=== PATIENT | male | born 1940 | race American Indian/Alaskan Native ===

== ENCOUNTER 2018-03-18 06:24 | Day surgery (SDC) | payer MEDICARE ==
[2018-03-16 08:16] VITALS: BMI 29.6
[2018-03-18] MEDS ORDERED: Lidocaine 2% PF (10 ml) Amp ONE (06:50)
[2018-03-18] MEDS ORDERED: Iodixanol 320 MG/ML 100 ML BOTTLE IV ONE (06:51)
[2018-03-18] MEDS ORDERED: Iohexol 350mgl/ml 50 ML ONE (06:51)
[2018-03-18] MEDS ORDERED: Iodixanol 320 MG/ML 200 ML BOTTLE IV ONE (06:51)
[2018-03-18 07:20] LABS: BASO # 0.02 K/mm3 (0.0-2.0); BASO % 0.4 % (0.0-3.0); EOS # 0.2 (0.0-0.7); EOS % 3.6 % (1.5-5.0); GRAN # 3.35 (1.4-6.5); GRAN % 60.5 % (50.0-68.0); HEMOGLOBIN 13.9 g/dL (14.0-18.0); LYMPH # 1.6 (1.2-3.4); LYMPH % 28.5 % (22.0-35.0); MEAN CELL VOLUME 79.7 fl (80.0-105.0); MEAN CORPUSCULAR HEMOGLOBIN 25.9 pg (25.0-35.0); MEAN CORPUSCULAR HGB CONC 32.5 g/dl (31.0-37.0); MEAN PLATELET VOLUME 9.8 fl (7.0-11.0); MONO # 0.4 (0.1-0.6); RBC 5.37 10^6/uL (3.5-6.1); RED CELL DISTRIBUTION WIDTH 14.2 % (11.5-14.5); WHITE BLOOD COUNT 5.5 10^3/ul (4.5-11.0)
[2018-03-18 07:26] LABS: INR 1.05; PARTIAL THROMBOPLASTIN TIME 31.3 Seconds (25.1-36.5); PROTHROMBIN TIME 12.1 SECONDS (9.4-12.5)
[2018-03-18 07:28] LABS: CALCIUM 9.8 mg/dL (8.4-10.5)
[2018-03-18] MEDS ORDERED: Midazolam 2 MG/2 ML VIAL ONE ×2 (07:46→07:50)
[2018-03-18 08:27] VITALS: TEMP 97.8
[2018-03-18] MEDS ORDERED: Sodium Chloride 0.9% 1,000 ML IV SCH (08:30)
--- NOTE | 2018-03-18 08:59 | CARDCATH ---
PROCEDURE DATE: 03/18/2018 CARDIAC CATHETERIZATION HISTORY: The patient is a 77-year-old male, who presents with exertional shortness of breath. He suffers from hypertension and hypercholesterolemia. His stress test was abnormal. Because of this, a cardiac catheterization was recommended. PROCEDURE: Left heart catheterization with coronary arteriography and left ventriculogram. The right femoral artery was cannulated with a 6-Uzbek sheath. There were no complications. I performed moderate sedation, which included the presence of an independent trained observer that assisted in monitoring the patient's consciousness and physiologic status. After administration of fentanyl and Versed, my intra service time was 15 minutes. The findings on catheterization revealed a left ventricle that contracted normally with an estimated ejection fraction of 70%. His coronary anatomy revealed a right dominant circulation. The RCA revealed diffuse atherosclerosis throughout its tree with a 40-50% stenosis in the midportion. The left main artery was unremarkable. The LAD revealed diffuse atherosclerosis with no critical lesions. In the mid to distal LAD, there was an eccentric 50% stenosis noted. The diagonal vessels and circumflex artery revealed intimal irregularities without significant stenosis. Angio-Seal was used to close the femoral artery site. The patient tolerated the procedure well. In summary, the procedure revealed borderline critical lesions in the mid to distal LAD and RCA with diffuse atherosclerosis. LV function is normal. Given these findings, the patient's treatment will be medical therapy, which should include a baby aspirin as well as statin therapy and weight loss. I have discussed this with the patient and family in detail. Ari Hinds MD
[2018-03-18 10:05] VITALS: RESP 16
--- NOTE | 2018-03-18 11:04 | CARD ---
APPROVED REPORT Date of service: 03/18/2018 EKG Measurement Heart [id number] <Conclusion> Sinus bradycardia LAD LVH NSSTW changes
[2018-03-18 12:13] VITALS: O2SAT 99
[2018-03-18 13:04] VITALS: BP 117/66; PULSE 51
== END 2018-03-18 15:30 | disposition home or self-care (01) ==
LOC: CATH 06:24
PROVIDERS: ATTEND Internal Medicine Cardiovascular Disease
DX: I25.10 Atherosclerotic heart disease of native coronary artery without angina pectoris (principal); E78.00 Pure hypercholesterolemia, unspecified; I10 Essential (primary) hypertension; Z87.891 Personal history of nicotine dependence
CPT/HCPCS: 36415; 80048; 80061; 85025; 85610; 85730; 86850; 86900; 93005; 93458; 99152; C1760; C1769; C2629; J1644; J2250; J3010; J7030; J7040; Q9966

== ENCOUNTER 2018-03-29 15:46 | Emergency (ER) | payer MEDICARE ==
[2018-03-29 15:51] VITALS: TEMP 98.2; O2SAT 99; BMI 29.4
--- NOTE | 2018-03-29 18:25 | ED PDOC ---
Arrival/HPI - General Chief Complaint: Abnormal Skin Integrity Time Seen by Provider: 03/29/18 16:54 Historian: Patient - History of Present Illness Narrative History of Present Illness (Text): 03/29/18 18:20 77yo male with Past medical history of hypertension who present with complaint of nonpainful lump to his right groin area. States he had cardiac cauterization on 03/18 and the right groin was the point of insertion. States the swelling was s/p the procedure. He spoke with Dr. Hinds's office and was referred to Emergency department for evaluation. He denies pain, redness, to the area. Past Medical History - Provider Review Nursing Documentation Reviewed: Yes - Infectious Disease Hx of Infectious Diseases: None - Cardiac Hx Cardiac Disorders: Yes Hx Pacemaker: No Other/Comment: cardiac cath - Pulmonary Hx Respiratory Disorders: No - Neurological Hx Paralysis: No - Hematological/Oncological Hx Blood Transfusions: No - Musculoskeletal/Rheumatological Hx Musculoskeletal Disorders: Yes - Psychiatric Hx Emotional Abuse: No Hx Physical Abuse: No Hx Substance Use: No - Anesthesia Hx Anesthesia Reactions: No Hx Malignant Hyperthermia: No - Suicidal Assessment Feels Threatened In Home Enviroment: No Family/Social History - Physician Review Nursing Documentation Reviewed: Yes Family/Social History: Unknown Family HX Smoking Status: Unknown If Ever Smoked Hx Alcohol Use: No (BEER) Hx Substance Use: No Allergies/Home Meds Allergies/Adverse Reactions: Allergies No Known Allergies Allergy (Verified 03/04/13 10:01) Home Medications: Home Meds Medication Instructions Recorded Confirmed Aspirin [Ecotrin] 81 mg PO DAILY 03/16/18 03/18/18 Clopidogrel [Plavix] 75 mg PO DAILY 03/16/18 03/18/18 Lisinopril [Zestril] 20 mg PO DAILY 03/16/18 03/18/18 Multivit-Min/FA/Lycopen/Lutein 1 tab PO DAILY 03/16/18 03/18/18 [Centrum Silver Tablet] RX: Omeprazole 40 mg PO DAILY 03/16/18 03/18/18 Ranitidine HCl [Zantac] 150 mg PO DAILY 03/16/18 03/18/18 amLODIPine [Norvasc] 10 mg PO DAILY 03/16/18 03/18/18 Review of Systems - Physician Review All systems were reviewed & negative as marked: Yes - Review of Systems Constitutional: Normal Eyes: Normal ENT: Normal Respiratory: Normal Cardiovascular: Normal Gastrointestinal: Normal Genitourinary Male: Other (Rt groin lump) Musculoskeletal: Normal Skin: Normal Neurological: Normal Endocrine: Normal Hemo/Lymphatic: Normal Psychiatric: Normal Physical Exam Vital Signs Reviewed: Yes Vital Signs Temp Pulse Resp BP Pulse Ox 03/29/18 15:51 98.2 F 91 H 18 181/79 H 99 Temperature: Afebrile Blood Pressure: Normal Pulse: Regular Respiratory Rate: Normal Appearance: Positive for: Well-Appearing, Non-Toxic, Comfortable Pain Distress: None Mental Status: Positive for: Alert and Oriented X 3 - Systems Exam Head: Present: Atraumatic, Normocephalic Pupils: Present: PERRL Extroacular Muscles: Present: EOMI Conjunctiva: Present: Normal Mouth: Present: Moist Mucous Membranes Neck: Present: Normal Range of Motion Respiratory/Chest: Present: Clear to Auscultation, Good Air Exchange. No: Respiratory Distress, Accessory Muscle Use Cardiovascular: Present: Regular Rate and Rhythm, Normal S1, S2. No: Murmurs Abdomen: Present: Normal Bowel Sounds, Other (Nontender nodule/swelling noted to right groin. No erythema. No crepitus. No warmth to touch). No: Tenderness, Distention, Peritoneal Signs, Rebound, Guarding, McBurney's Point Tender, Rovsing's Sign Present Back: Present: Normal Inspection Upper Extremity: Present: Normal Inspection. No: Cyanosis, Edema Lower Extremity: Present: Normal Inspection. No: Edema Neurological: Present: GCS=15, CN II-XII Intact, Speech Normal Skin: Present: Warm, Dry, Normal Color. No: Rashes Psychiatric: Present: Alert, Oriented x 3, Normal Insight, Normal Concentration Medical Decision Making ED Course and Treatment: 03/30/18 01:42 PT in Emergency department for stated history. He was not in any distress . Hem odynamically stable Right lower arterial US FINDINGS: The right common femoral artery is patent with a normal triphasic waveform. [id number] atherosclerotic changes seen. No sonographic evidence of a pseudoaneurysm or AV fistula is seen. The right superficial femoral artery and profunda femoral artery are patent proximally. The visualized venous segments the right groin are patent and compressible. IMPRESSION: 1. No sonographic evidence for pseudoaneurysm or AV fistula in the right groin. Result was DW with the pt. He was Dc and referred to Dr. Hinds - RAD Interpretation Radiology Orders: 03/29/18 17:14 DUPLEX LOWER EXT ART RT LMTD [US] Stat Disposition/Present on Arrival - Present on Arrival Any Indicators Present on Arrival: No History of DVT/PE: No History of Uncontrolled Diabetes: No Urinary Catheter: No History of Decub. Ulcer: No History Surgical Site Infection Following: None - Disposition Have Diagnosis and Disposition been Completed?: Yes Diagnosis: Lymphadenopathy Disposition: HOME/ ROUTINE Disposition Time: 19:25 Patient Plan: Discharge Condition: STABLE Additional Instructions: Follow up with your Doctor Return to Emergency department for any new or worsening symptoms Referrals: Ari Hinds MD [Staff Provider] - Follow up with primary Forms: [employer] (Albanian)
--- NOTE | 2018-03-29 19:46 | US ---
PROCEDURE: Duplex arterial ultrasound of the right groin. HISTORY: Recent cardiac catheterization. Pain and pulsatile mass in the right groin. Evaluate for pseudoaneurysm or fistula. PHYSICIAN(S): Ari Car MD. FINDINGS: The right common femoral artery is patent with a normal triphasic waveform. Ogoc-[id number]-augcramp atherosclerotic changes seen. No sonographic evidence of a pseudoaneurysm or AV fistula is seen. The right superficial femoral artery and profunda femoral artery are patent proximally. The visualized venous segments the right groin are patent and compressible. IMPRESSION: 1. No sonographic evidence for pseudoaneurysm or AV fistula in the right groin.
[2018-03-29 19:50] VITALS: BP 170/79; PULSE 77; RESP 16
== END 2018-03-29 19:49 | disposition home or self-care (01) ==
LOC: ED 15:46
DX: R59.1 Generalized enlarged lymph nodes (principal); I10 Essential (primary) hypertension